=== PATIENT | female | born 1965 | race African-American/Black ===

== ENCOUNTER 2017-02-11 15:36 | Emergency (ER) | payer OTHER, SELFPAY | END 2017-02-11 17:02 | disposition home or self-care (01) | PROVIDERS: Emergency Provider Nurse Practitioner; Visit Provider Nurse Practitioner | DX: L02.512 Cutaneous abscess of left hand (principal); T63.301A Toxic effect of unspecified spider venom, accidental (unintentional), initial encounter; Y92.013 Bedroom of single-family (private) house as the place of occurrence of the external cause; I10 Essential (primary) hypertension; K21.9 Gastro-esophageal reflux disease without esophagitis; Z88.6 Allergy status to analgesic agent | CPT/HCPCS: 99201 ==